=== PATIENT | male | born 1940 | race Asian ===

== ENCOUNTER 2023-12-08 18:46 | Emergency (ER) | payer OTHER ==
[2023-12-08 19:30] VITALS: BMI 28.3
[2023-12-08] MEDS ORDERED: ACETAMINOPHEN 325 MG TABLET (FP) ONE (20:19)
[2023-12-08] MEDS: ACETAMINOPHEN 325 MG TABLET (FP) PO ONE (20:35)
[2023-12-08 20:50] LABS: EPI CELLS 7 /uL (0-25.1); HYALINE CASTS 2 /uL (0-3.1); URINE APPEARANCE CLEAR; URINE BACTERIA 8 /uL (0-1359); URINE BILIRUBIN NEGATIVE (NEGATIVE); URINE COLOR YELLOW; URINE GLUCOSE (UA) NEGATIVE (NEGATIVE); URINE KETONE NEGATIVE (NEGATIVE); URINE LEUK ESTERASE TRACE (NEGATIVE); URINE NITRITE NEGATIVE (NEGATIVE); URINE PROTEIN 1+ (NEGATIVE); URINE RBC 43 /uL (0-23.9); URINE WBC 35 /uL (0-25.8)
[2023-12-08] MEDS ORDERED: CEPHALEXIN MONOHYDRATE 500 MG CAPSULE (UD) ONE ×2 (21:43→21:51)
[2023-12-08 21:49] VITALS: BP 133/64; PULSE 84; RESP 18; TEMP 98.6
[2023-12-08] MEDS: CEPHALEXIN MONOHYDRATE 500 MG CAPSULE (UD) PO ONE (21:50)
== END 2023-12-08 21:56 | disposition home or self-care (01) ==
LOC: JER 18:46
DX: N39.0 Urinary tract infection, site not specified (principal); R31.9 Hematuria, unspecified; R30.0 Dysuria; R39.11 Hesitancy of micturition; R00.0 Tachycardia, unspecified
CPT/HCPCS: 81003; 87086; 99283-25